=== PATIENT | female | born 1960 | race Caucasian/White ===

== ENCOUNTER 2016-12-04 16:07 | Emergency (ER) | payer OTHER ==
[~2016-12-04] VITALS: Ht 167.6 cm; Wt 122.4 kg
[~2016-12-04 16:07] MED LIST: B COMPLETE1 EACH PO; CYCLOBENZAPRINE10 MG PO; HYDROCHLOROTHIA25 MG PO; HYDROCODON-ACE1 EAC7 PO; NAPROSYN500 MG PO; NAPROXEN SODIU550 MG PO; POTASSIUM-9999 MG PO
[2016-12-04 17:07] LABS: HEMATOCRIT 36.5 % (36.0-46.0); MCHC 34.5 G/DL (30.0-36.0); MCV 92.6 FL (83-99); MEAN PLAT.VOLUME 10.1 uM^3 (9.5-12.4); PLATELET COUNT 171 K/uL (156-360); RBC DIS.WIDTH-CV 13.5 % (11.8-14.6); RBC DIS.WIDTH-SD 44.7 % (39-53); RED BLOOD COUNT 3.94 M/uL (3.80-5.20); WHITE BLOOD COUNT 3.4 K/uL (4.1-10.2)
[2016-12-04 17:17] LABS: CHLORIDE 97 mEq/L (99-109); POTASSIUM 4.1 mEq/L (3.7-5.4); SODIUM 136 mEq/L (136-147)
[2016-12-04 17:19] LABS: GLUCOSE 91 mg/dL (70-99)
[2016-12-04 17:20] LABS: ANION GAP 9 MEQ/L (2-14)
[2016-12-04 17:23] LABS: GFR ESTIMATE (CALCULATED) > 59 mL/min/; UREA NITROGEN (BUN) 11 mg/dL (9-23)
[2016-12-04 17:58] LABS: ADD MIUA? NO; BILIRUBIN NEGATIVE; BLOOD NEGATIVE; COLOR YELLOW ((YELLOW)); GLUCOSE (STRIP) NEGATIVE; KETONES NEGATIVE; LEUKOCYTES NEGATIVE; NITRITE NEGATIVE; PROTEIN (STRIP) NEGATIVE; SPECIFIC GRAVITY 1.013 (1.000-1.030); UCUL ADDED? NO; UROBILINOGEN 0.2 MG/DL (0.2-1.0)
[2016-12-04] MEDS ORDERED: VALTREX1000 MG PO (18:39)
[2016-12-04] MEDS ORDERED: PREDNISONE50 MG PO (18:39)
[2016-12-04 19:21] VITALS: BP 138/82
== END 2016-12-04 19:22 | disposition home or self-care (01) ==
LOC: EME 16:07
PROVIDERS: Nurse Practitioner Family
DX: G51.0 Bell's palsy (principal); G89.29 Other chronic pain; K21.9 Gastro-esophageal reflux disease without esophagitis; Z87.891 Personal history of nicotine dependence
CPT/HCPCS: 70450; 71020; 80048; 81003; 85027; 93005; 99281; 99285; J7512

== ENCOUNTER → 2018-02-02 | Outpatient (CLI) | payer OTHER ==
[~2018-02-02] MED LIST changes: +PREDNISONE50 MG PO; +VALTREX1000 MG PO
== END | disposition home or self-care (01) ==
DX: M17.11 Unilateral primary osteoarthritis, right knee (principal); R26.2 Difficulty in walking, not elsewhere classified; M25.561 Pain in right knee; M25.661 Stiffness of right knee, not elsewhere classified; M62.81 Muscle weakness (generalized); Z74.1 Need for assistance with personal care
CPT/HCPCS: 97161 GP; 97165 GO; 97530 GP; 97535 GO

== ENCOUNTER 2018-02-28 21:56 | Inpatient (IN) | payer OTHER ==
[~2018-02-28] VITALS: Ht 167.6 cm; Wt 134.2 kg
[~2018-02-28 21:56] MED LIST changes: +CALCIUM500 M4 PO; +IRON325 M1 PO; +MULTIVITAMIN1 EAC2 PO; +NEURONTIN300 MG PO; +PROTONIX40 MG PO; +PROVENTIL HFA6.7 GM IH; +TYLENOL PM EX-1 EACH PO
[2018-03-01 06:09] VITALS: BP 137/67
[2018-03-01 10:10] LABS: HEMATOCRIT 38.5 % (36.0-46.0); HEMOGLOBIN 12.8 G/DL (11.9-15.5); MCH 32.3 PG (29.0-34.0); MCHC 33.2 G/DL (30.0-36.0); MCV 97.2 FL (83-99); PLATELET COUNT 153 K/uL (156-360); RBC DIS.WIDTH-CV 13.4 % (11.8-14.6); RBC DIS.WIDTH-SD 47.9 % (39-53); RED BLOOD COUNT 3.96 M/uL (3.80-5.20); WHITE BLOOD COUNT 4.2 K/uL (4.1-10.2)
[2018-03-01 11:00] VITALS: BP 127/65
[2018-03-01 15:59] VITALS: BP 175/90
[2018-03-01 20:14] VITALS: BP 181/88
[2018-03-02] VITALS (7 sets, daily range): BP systolic 154–199; BP diastolic 74–87
[2018-03-02 05:57] LABS: CHLORIDE 96 MEQ/L (99-109); CREATININE 0.7 MG/DL (0.6-1.3); GFR ESTIMATE (CALCULATED) > 59 mL/min/; GLUCOSE 118 mg/dL (70-99); POTASSIUM 4.1 MEQ/L (3.7-5.4); SODIUM 136 MEQ/L (136-147); UREA NITROGEN (BUN) 7 mg/dL (9-23)
[2018-03-02 06:09] LABS: HEMATOCRIT 36.4 % (36.0-46.0); HEMOGLOBIN 12.2 G/DL (11.9-15.5); MCV 95.3 FL (83-99)
[2018-03-03] VITALS: BP 142/80
[2018-03-03 04:03] VITALS: BP 166/74
[2018-03-03 05:59] LABS: HEMATOCRIT 36.1 % (36.0-46.0); HEMOGLOBIN 12.1 G/DL (11.9-15.5); MCV 94.5 FL (83-99)
[2018-03-03 07:43] VITALS: BP 122/60
[2018-03-03] MEDS ORDERED: ENDOCET 5-3251 EACH PO (08:37)
[2018-03-03] MEDS ORDERED: LOVENOX40 MG/0.4 SC (08:37)
[2018-03-03 09:57] VITALS: BP 138/70
[2018-03-03 12:28] VITALS: BP 166/80
== END 2018-03-03 13:50 | DRG 470 ==
LOC: ENRESERV 21:56 → 2SOUTH 03-01 05:35 → 3WEST 03-01 10:44 → 2SOUTH 03-01 14:39 → 3WEST 03-03 13:50
PROVIDERS: Orthopaedic Surgery
PROC: 0SRC0J9 Replacement of Right Knee Joint with Synthetic Substitute, Cemented, Open Approach (ICD-10-PCS; principal; 2018-03-01)
DX: M17.11 Unilateral primary osteoarthritis, right knee (principal); E66.01 Morbid (severe) obesity due to excess calories; Z68.42 Body mass index [BMI] 45.0-49.9, adult; I10 Essential (primary) hypertension; K21.9 Gastro-esophageal reflux disease without esophagitis; Z87.891 Personal history of nicotine dependence; E55.9 Vitamin D deficiency, unspecified
CPT/HCPCS: 73560; 80048; 85014; 85018; 85027; 94760; 94799; C1713; J0131; J0330; J0690; J1170; J1650; J2250; J2795; J7050; S0020